=== PATIENT | male | born 2000 | race Hispanic/Latino ===

== ENCOUNTER 2021-06-05 15:39 | Emergency (ER) | payer MEDICAID ==
[~2021-06-05 15:39] MED LIST: Heparin 10,000 UNITS/ 10 ML VIAL ONE
[2021-06-05 16:18] LABS: #Eosinphils 0.1 thou/uL (0.0-0.7); #Lymphocytes 1.3 thou/uL (1.20-3.40); #Monocytes 0.4 thou/uL (0.11-0.59); %Basophils 0.8 % (0.0-1.0); %Eosinophils 2.8 % (0.0-10.0); %Lymphocytes 26.7 % (28.0-48.0); %Monocytes 7.5 % (0.0-4.0); %Neutrophils 62.2 % (31.0-61.0); Hemoglobin 12.4 g/dL (14.0-18.0); Mean Corpuscular HGB CONC 33.6 g/dL (32.0-36.0); Mean Corpuscular Volume 92.3 fL (78.0-98.0); Mean Platelet Volume 7.8 fL (7.4-10.4); Platelet Count 170 thou/uL (130-400); RBC Distribution Width 11.2 % (11.5-14.5); White Blood Cell (WBC) Count 4.7 thou/uL (4.8-10.8)
[2021-06-05 16:38] LABS: Phosphorus 7.7 mg/dL (2.3-4.7)
[2021-06-05 16:48] LABS: ALT (SGPT) 7 U/L (8-55); AST (SGOT) 5 U/L (10-45); Albumin 4.9 g/dL (3.5-5.0); Alkaline Phosphatase 51 U/L (50-130); Anion Gap 23 mmol/L (10-20); Bilirubin, Total 0.7 mg/dL (0.2-1.2); Calc. Creatinine Clearance 0 mL/min (70-130); Calcium 10.5 mg/dL (7.8-10.44); Carbon Dioxide 20 mmol/L (22-29); Chloride 101 mmol/L (98-107); Globulin 3.1 g/dL (2.4-3.5); Glucose 89 mg/dL (70-105); Magnesium 3.3 mg/dL (1.7-2.2); Potassium 5.9 mmol/L (3.5-5.1); Sodium 138 mmol/L (136-145)
[2021-06-05 17:03] LABS: BUN (Urea Nitrogen) 119 mg/dL (8.4-21.0)
[2021-06-05 18:33] LABS: HBSAg Index 0.26 S/CO (0-0.99); Hep B Surf Ag Non-Reactive S/CO (NonReactive)
[2021-06-05] MEDS ORDERED: Ondansetron ODT 4 MG TAB ONE (21:05)
== END 2021-06-05 22:35 | disposition home or self-care (01) ==
LOC: ERS 15:39
DX: E87.5 Hyperkalemia (principal); I12.0 Hypertensive chronic kidney disease with stage 5 chronic kidney disease or end stage renal disease; N18.6 End stage renal disease; Z79.899 Other long term (current) drug therapy
CPT/HCPCS: 36415; 80053; 83735; 84100; 85025; 87340; 93005; J1644; Q0162